=== PATIENT | female | born 1995 | race Caucasian/White ===

== ENCOUNTER 2017-07-25 10:40 | Emergency (ER) | payer OTHER ==
[2017-07-25 11:03] VITALS: BP 116/52
--- NOTE | 2017-07-25 11:22 | UC ---
Respiratory Complaint HPI - HPI Summary HPI Summary: Fever, body ache, sore throat seen at [place] on Saturday rx with PCN did not help, - History of Current Complaint Chief Complaint: UCRespiratory Stated Complaint: SORE THROAT, FEVER, HEADACHE Time Seen by Provider: 07/25/17 11:06 Hx Obtained From: Patient Hx Last Menstrual Period: 07/10/17 ?: No Onset/Duration: Sudden Onset, Lasting Days - 6, Still Present Timing: Constant Severity Initially: Moderate Severity Currently: Moderate Alleviating Factors: OTC Meds Associated Signs And Symptoms: Positive: Fever, Chills, URI - Allergies/Home Medications Allergies/Adverse Reactions: Allergies Allergy/AdvReac Type Severity Reaction Status Date / Time No Known Allergies Allergy Verified 07/25/17 10:58 Home Medications: Home Medications Lexapro 10 mg 10 mg PO DAILY 07/25/17 [History Confirmed 07/25/17] Penicillin VK 500 MG TAB(NF) [Penicillin VK 500 mg Tab] 500 mg PO BID 07/25/17 [ History Confirmed 07/25/17] buPROPion TAB* [Wellbutrin TAB*] 150 mg PO DAILY 07/25/17 [History Confirmed ] PMH/Surg Hx/FS Hx/Imm Hx Previously Healthy: Yes Psychological History: Depression - Surgical History Surgical History: None - Family History Known Family History: Positive: None - Social History Occupation: Student Lives: Dormitory/Roommates Alcohol Use: Occasionally Substance Use Type: None Smoking Status (MU): Never Smoked Tobacco Review of Systems Constitutional: Fever, Chills, Fatigue Skin: Negative Eyes: Negative ENT: Negative Respiratory: Cough Cardiovascular: Negative Gastrointestinal: Nausea Genitourinary: Negative Motor: Negative Neurovascular: Negative Musculoskeletal: Arthralgia, Myalgia Neurological: Negative Psychological: Negative Is Patient Immunocompromised?: No All Other Systems Reviewed And Are Negative: Yes Physical Exam Triage Information Reviewed: Yes Appearance: Well-Appearing, No Pain Distress, Well-Nourished Vital Signs: Initial Vital Signs Temp 98.6 F 07/25/17 11:01 Pulse 92 07/25/17 11:01 Resp 17 07/25/17 11:01 BP 116/52 07/25/17 11:01 Pulse Ox 100 07/25/17 11:01 Vital Signs Reviewed: Yes Eye Exam: Normal Eyes: Positive: Conjunctiva Clear ENT Exam: Normal ENT: Positive: Normal ENT inspection, Hearing grossly normal, Pharynx normal, TMs normal, Tonsillar swelling, Uvula midline. Negative: Nasal congestion, Nasal drainage, Tonsillar exudate, Trismus, Muffled voice, Hoarse voice, Sinus tenderness Dental Exam: Normal Neck exam: Normal Neck: Positive: Supple, Nontender, Enlarged Nodes @ - anterior cervical Respiratory Exam: Normal Respiratory: Positive: Chest non-tender, Lungs clear, Normal breath sounds, No respiratory distress, No accessory muscle use Cardiovascular Exam: Normal Cardiovascular: Positive: RRR, No Murmur, Pulses Normal, Brisk Capillary Refill Abdominal Exam: Normal Abdomen Description: Positive: Nontender, No Organomegaly, Soft. Negative: CVA Tenderness (R), CVA Tenderness (L) Bowel Sounds: Positive: Present Musculoskeletal Exam: Normal Musculoskeletal: Positive: Strength Intact, ROM Intact, No Edema Neurological Exam: Normal Neurological: Positive: Alert, Muscle Tone Normal Psychological Exam: Normal Skin Exam: Normal UC Diagnostic Evaluation - Laboratory O2 Sat by Pulse Oximetry: 100 Diagnostic Studies Comment: RST (-), Influenza A/B (-) Respiratory Course/Dx - Course Course Of Treatment: CBC, [place], increase fluids follow with [facility]- - Differential Dx/Diagnosis Provider Diagnoses: Viral Pharyngitis, febrile Discharge - Discharge Plan Condition: Stable Disposition: HOME Patient Education Materials: Mononucleosis (ED), Viral Syndrome (ED) Referrals: [facility] [Outside] Non Staff,Doctor [Primary Care Provider] -
[2017-07-25 11:55] LABS: EBV Response YES
[2017-07-25 17:26] LABS: Hematocrit 34 % (35-47); Hemoglobin 11.3 g/dl (12.0-16.0); Mean Corpuscular HGB Conc 33 g/dl (31-36); Mean Corpuscular Hemoglobin 28 pg (27-31); Mean Corpuscular Volume 86 fL (80-97); Mean Platelet Volume 9 um3 (7.4-10.4); Red Blood Count 4.01 10^6/ul (4.0-5.4); Red Cell Distribution Width 15 % (10.5-15); White Blood Count 7.6 10^3/ul (3.5-10.8)
[2017-07-25 17:36] LABS: Manual Entry Verification MER0007; Mono Internal Control QC Line Present
[2017-07-27 13:12] LABS: EBV Capsid Ag IgG Ab Positive (Negative); EBV Capsid Ag IgM Ab Negative (Negative)
== END 2017-07-25 11:50 | disposition home or self-care (01) ==
LOC: UCEAST 10:40
DX: J02.8 Acute pharyngitis due to other specified organisms (principal); F50.9 Eating disorder, unspecified; F32.9 Major depressive disorder, single episode, unspecified
CPT/HCPCS: 36415; 85025; 86308; 86664; 86665; 87502; 87651; 99211; G0463